=== PATIENT | male | born 1985 | race Caucasian/White ===

== ENCOUNTER 2021-02-11 08:53 | Emergency (ER) | payer MEDICAID ==
[~2021-02-11] VITALS: Ht 190.5 cm; Wt 109.0 kg
[2021-02-11 10:06] LABS: BG BASE EXCESS 0.1 mmol/L (-2.0-2.0); BG CARBOXYHEMOGLOBIN 1.8 % (0.5-1.5); BG DEOXYHEMOGLOBIN 4.2 % (0.0-5.0); BG HCO3 ACT 24.4 mmol/L (22.0-26.0); BG METHEMOGLOBIN 0.4 % (0.0-1.5); BG OXYGEN SATURATION 95.7 % (92.0-98.5); BG OXYHEMOGLOBIN 93.6 % (94.0-97.0); BG PH 7.415 (7.350-7.450); BG SAMPLE SITE RIGHT RADIAL; BG TOTAL HEMOGLOBIN 14.6 g/dL (12.0-18.0); BG VENT MODE ROOM AIR
[2021-02-11 10:35] LABS: HEMOGLOBIN. 14.4 g/dL (14.0-18.0); MEAN CORPUSCULAR HEMOGLOBIN 24.1 pg (28.0-32.0); MEAN CORPUSCULAR VOLUME 75.3 fL (80.0-94.0); MEAN PLATELET VOLUME 8.5 fl (7.4-10.4); PLATELET 147 x1000/uL (130-400); RED BLOOD CELL COUNT 5.97 mill/uL (4.7-6.1); RED CELL DISTRIBUTION WIDTH 13.3 % (11.6-14.6)
[2021-02-11 10:41] LABS: CHLORIDE 106 mEq/L (98-107)
[2021-02-11 11:27] VITALS: BP 152/102
[2021-02-11] MEDS ORDERED: TOPUD PO (11:48)
[2021-02-11] MEDS ORDERED: TRIMO EACHEYE (11:48)
[2021-02-11 11:49] LABS: PLATELET ESTIMATE NORMAL
== END 2021-02-11 12:13 | disposition home or self-care (01) ==
LOC: ER 08:53
DX: H10.89 Other conjunctivitis (principal); Z20.822 Contact with and (suspected) exposure to COVID-19
CPT/HCPCS: 36415; 36600; 71045; 80053; 82375; 82805; 85025; 99284; C9803; U0003; U0005